=== PATIENT | female | born 1945 | race Caucasian/White ===

== ENCOUNTER 2023-02-27 05:50 | Day surgery (SDC) | payer MEDICARE, OTHER ==
[2023-02-27 06:27] LABS: HEMATOCRIT 46.3 % (34.3-46.0); HEMOGLOBIN 15.4 g/dL (11.2-15.5); MEAN CORPUSCULAR HEMOGLOBIN 30.5 pg (31.6-35.5); MEAN CORPUSCULAR HGB CONC 33.3 g/dL (31.6-35.5); MEAN CORPUSCULAR VOLUME 91.7 fL (81.4-99.0); RED BLOOD CELL COUNT 5.05 M/uL (3.77-5.24); WHITE BLOOD CELL COUNT,WBC 7.2 K/uL (3.2-11.0)
[2023-02-27] MEDS ORDERED: Lactated Ringers 1,000 ML IV SCH (06:30)
[2023-02-27] MEDS ORDERED: Nozin Nasal Sanitizer NASBOTH ONE (06:30)
[2023-02-27] MEDS ORDERED: Bupivacaine 0.5% 30 ML SDV ONE (06:45)
[2023-02-27 06:49] LABS: A/G RATIO 1.3 (1.2-2.2); ALANINE AMINOTRANSFERASE,ALT 26 U/L (12-78); ALBUMIN 3.9 g/dL (3.4-5.0); ALKALINE PHOSPHATASE 100 U/L (46-116); ANION GAP 11.8 mmol/L (5.0-14.0); ASPARTATE AMNIOTRANSFERASE,AST 20 U/L (15-37); BILIRUBIN TOTAL 0.5 mg/dL (0.2-1.0); BLOOD UREA NITROGEN,BUN 10 mg/dL (7-18); CALCIUM 9.8 mg/dL (8.5-10.1); CARBON DIOXIDE,CO2 26 mmol/L (21-32); CHLORIDE,CL 104 mmol/L (100-108); CREATININE 0.7 mg/dL (0.6-1.0); EST CRCL DRUG DOSING (CG) 56.18 mL/min; ESTIMATED GFR 90 mL/min (>60); GLUCOSE RANDOM 93 mg/dL (74-106); POTASSIUM,K 3.8 mmol/L (3.6-5.2); PROTEIN TOTAL,TP 6.9 g/dL (6.4-8.2); SODIUM,NA 138 mmol/L (140-148)
[2023-02-27] MEDS ORDERED: ceFAZolin 1 GM in Premix Bag 1 BAG IV ONE (07:00)
[2023-02-27] MEDS ORDERED: Scopolamine 1.5 MG Transdermal Patch TRDERM ONE (07:09)
[2023-02-27] MEDS ORDERED: Midazolam 1 MG/ML 2 ML SDV ONE (07:17)
[2023-02-27] MEDS ORDERED: Lidocaine 0.5% 50 ML SDV ONE (07:17)
[2023-02-27] MEDS ORDERED: Propofol 200 MG/20 ML SDV ONE ×2 (07:17→08:19)
[2023-02-27] MEDS ORDERED: fentaNYL 100 MCG/2 ML SDV ONE (07:17)
[2023-02-27] MEDS ORDERED: Acetaminophen/HYDROcodone 325-5 MG Tab PO PRN (09:48)
== END 2023-02-27 10:45 | disposition home or self-care (01) ==
LOC: JP.SDS 05:50
PROVIDERS: ATTEND Specialist
DX: M19.041 Primary osteoarthritis, right hand (principal); G56.01 Carpal tunnel syndrome, right upper limb; K21.9 Gastro-esophageal reflux disease without esophagitis; Z79.899 Other long term (current) drug therapy; Z87.891 Personal history of nicotine dependence; Z88.5 Allergy status to narcotic agent
CPT/HCPCS: 25447; 36415; 64721; 80053; 85027; A9270; C1762; J0690; J2250; J2704; J3010; J3490; J7120